=== PATIENT | female | born 1980 | race Caucasian/White ===

== ENCOUNTER 2022-01-09 11:03 | Emergency (ER) | payer OTHER ==
[2022-01-09 11:24] VITALS: BP 117/80; PULSE 98; RESP 16; TEMP 97.8; BMI 27.9
[2022-01-09 14:57] LABS: BASO % 0.9 % (0-2.0); EOS % 1.2 % (0-4.5); HEMATOCRIT 42.5 % (32.4-45.2); HEMOGLOBIN 13.9 GM/dL (10.7-15.3); LYMPH % 21.9 % (8-40); MCH 31.6 pg (25.7-33.7); MCHC 32.7 g/dl (32.0-36.0); MEAN CELL VOLUME 96.9 fl (80-96); MEAN PLT VOLUME 7.6 fl (7.5-11.1); MONO % 11.5 % (3.8-10.2); NEUT % 64.5 % (42.8-82.8); PLATELET COUNT 302 10^3/uL (134-434); RBC 4.39 M/mm3 (3.60-5.2); WHITE BLOOD COUNT 5.3 K/mm3 (4.0-10.0)
[2022-01-09 15:17] LABS: CALCIUM 9.1 mg/dL (8.5-10.1)
[2022-01-09 15:18] LABS: ALBUMIN 3.8 g/dl (3.4-5.0); BLOOD UREA NITROGEN 13.6 mg/dL (7-18)
[2022-01-09 15:21] LABS: CREATININE 0.7 mg/dL (0.55-1.3)
[2022-01-09 15:22] LABS: BILIRUBIN,TOTAL 0.8 mg/dL (0.2-1)
[2022-01-09 15:23] LABS: TOT PROT 7.4 g/dl (6.4-8.2)
== END 2022-01-09 17:10 | disposition home or self-care (01) ==
LOC: JER 11:03
DX: M79.605 Pain in left leg (principal)
CPT/HCPCS: 36415; 80053; 85025; 87040; 93971-TC; 99284-25

== ENCOUNTER → 2023-09-14 | Day surgery (SDC) | payer OTHER | END | disposition home or self-care (01) | LOC: FRADUS-SUR 10:57 | PROVIDERS: ATTEND Obstetrics & Gynecology | PROC: 0H9U3ZX Drainage of Left Breast, Percutaneous Approach, Diagnostic (ICD-10-PCS; principal; 2023-09-14) | DX: N60.02 Solitary cyst of left breast (principal) | CPT/HCPCS: 19000; 76942-TC; 77065-TC; 88173; 88305-TC; G0279-TC ==